=== PATIENT | female | born 1945 | race Caucasian/White ===

== ENCOUNTER 2025-09-16 17:51 | Emergency (ER) | payer MEDICARE, BC ==
[~2025-09-16] VITALS: Ht 165.1 cm; Wt 77.6 kg
[2025-09-16 18:58] LABS: LEUKOCYTE ESTERASE ,URINE SMALL (Neg); NITRITES, URINE POSITIVE (Neg); OCCULT BLOOD,URINE LARGE (Neg)
[2025-09-16 19:07] LABS: UA COLLECTION TYPE URINAL
[2025-09-16 19:08] LABS: MUCUS STRANDS NONE SEEN /LPF (Neg); SQUAMOUS EPITHELIAL CELL,UR FEW /LPF (FEW)
[2025-09-16 19:34] LABS: MEAN PLATELET VOLUME 9.3 FL (7.4-10.4); RED CELL DISTRIBUTION WIDTH 13.6 % (11.5-14.5)
[2025-09-16] MEDS ORDERED: CefTRIAXone 2gm/D5W 50ml BAG 50 ML IV SCH (19:35)
--- NOTE | 2025-09-16 19:51 | Physician Documentation ---
History of Present Illness ~ Chief Complaint: Blood in Urine Stated Complaint: BLOODY URINE Time Seen by MD: 19:45 HPI This 80-year-old female presents to the ED with a complaint of left pelvic pain and blood in her urine for the last two days. Denies having any long history of urinary tract infections. sHe denies any fevers nausea vomiting or diarrhea. She has the ability to empty her bladder denies any history of kidney stone Medication Reconciliation Allergies: Coded Allergies: No Known Allergies (Unverified , 09/16/25) Review of Systems All Other Systems at this time: Reviewed and Negative ROS General: Alert, no apparent distress. Respiratory: Lungs clear, no respiratory distress. Cardiovascular: Regular rate and rhythm, no murmurs. Gastrointestinal: Soft, nontender, nondistended. Bowels sounds present. Negative CVA tenderness Extremities: Normal range of motion, no deformity. Neurologic: Oriented x4. Psychiatric: Normal mood and affect. Skin: Normal color, warm and dry. No edema, no ecchymosis. Physical Exam Vital Signs: Temperature: 96.9, Source: Temporal, Heart Rate: 85, Respiratory Rate: 15, BP: 197/78, Pulse Oximetry: 98, Weight: 77.600 Physical Exam General: Alert, no apparent distress. Respiratory: Lungs clear, no respiratory distress. Cardiovascular: Regular rate and rhythm, no murmurs. Gastrointestinal: Soft, nontender, nondistended. Bowels sounds present. Negative CVA tenderness Extremities: Normal range of motion, no deformity. Neurologic: Oriented x4. Psychiatric: Normal mood and affect. Skin: Normal color, warm and dry. No edema, no ecchymosis. Progress Results/Orders Results/Orders Orders - GUILHERME NIEVES TICKET AGENT Culture Blood (09/16/25 18:18) Monitor (09/16/25 18:18) Saline Lock (09/16/25 18:18) Procalcitonin (09/16/25 18:18) BMP (09/16/25 18:18) Lacticsepsis (09/16/25 18:18) Completed Orders - GUILHERME NIEVES [employer] AGENT Cbc/Diff (09/16/25 18:18) Ceftriaxone 2gm/D5w 50ml Bag (Rocephin 2 (09/16/25 19:35) Vital Signs 09/16/25 18:06 Temp 96.9 Pulse 85 Resp 15 B/P (MAP) 197/78 Pulse Ox 98 Laboratory Tests Test 09/16/25 18:10 09/16/25 18:31 Urine Specimen Description Urinal Urine Color Yellow Urine Clarity Cloudy Urine pH 6.0 Urine Specific Martin 1.020 Urine Protein 100 H Urine Glucose (UA) Negative Urine Ketones Negative Urine Occult Blood Large H Urine Nitrite Positive H Urine Bilirubin Small Urine Urobilinogen 0.2 Urine Leukocyte Esterase Small H Urine RBC 50-100 Urine WBC 10-20 H Urine Squamous Epithelial Cells Few Urine Bacteria 1+ Urine Mucus None seen Urine Culture Indicated Indicated Volume Urine Centrifuged 10 ml Urine Comment White Blood Count 10.1 Red Blood Count 4.30 Hemoglobin 13.5 Hematocrit 38.9 Mean Corpuscular Volume 90.5 Mean Corpuscular Hemoglobin 31.4 H Mean Corpuscular Hemoglobin Concent 34.7 Red Cell Distribution Width 13.6 Platelet Count 176 Mean Platelet Volume 9.3 Neutrophils (%) (Auto) 86.2 H Lymphocytes (%) (Auto) 5.9 L Monocytes (%) (Auto) 6.2 Eosinophils (%) (Auto) 1.4 Basophils (%) (Auto) 0.3 Neutrophils # (Auto) 8.7 H Lymphocytes # (Auto) 0.6 L Monocytes # (Auto) 0.6 Eosinophils # (Auto) 0.1 Basophils # (Auto) 0.0 CBC Comment Chemistry Comments Medical Decision Making Additional information obtaine: old records Findings I discussed with the patient that she is positive for nitrites and urinary tract infect. She is hemodynamically stable her labs were reassuring and her vitals are within normal limits. I discussed with the patient that because she is elderly she is at higher risk of developing urosepsis. I did offer hospitalization however she declined. We will place her on oral antibiotics with a starting dose of Rocephin in the ED Urinary Diff Dx:Considerations: Include: AAA, , Aortic dissection, Appendicitis, Bowel obstruction, Cholelithiasis, Choleangitis, DJD, Ectopic , Hepatitis, HNP, Impaction, Intrauterine , Musculoskeletal pain, Ovarian torsion, Pancreatitis, PID, Post-Op complication, Pyelonephritis, Renal failure, Strain, Urinary Obstruction, Urolithiasis, Urinary retention, UTI, Vaginitis, Other Genital Diff Dx:Considerations: Unlikely: -Complete, - Incomplete, -Inevitable, Ablortion-Missed, -Threatened, Abruptio placentae, Bartholin abscess, Bartholin cyst, Blood loss anemia, Constipation, Cervicitis, Dsymenorrhea, Ectopic , Foreign body, Hormonal, Hidr adenitis suppurativa, Intrauterine , Menorrhagia, Menometrorrhagia, Menstrual bleeding, Myomatous uterus, Perianal abscess, Physiologic discharge, Pinworms, PID, Placenta previa, , Precipitous Hct, Trauma, UTI, Vaginitis(osis)-Atrophic, Vaginitis, Vaginitis(osis)-Bacterial, Vaginitis(osis)- Candidal, Vaginitis(osis)-Contact, Vaginitis(osis)-Herpes, Vaginitis(osis)- Trich., Other Departure Disposition: HOME / SELF CARE / HOMELESS Impression: Primary Impression: Urinary tract infection Condition: Stable Discharge Instructions: Hematuria, Adult, Urinary Tract Infection, Adult Referrals: NO PRIMARY CARE PROVIDER (PCP) Prescriptions Nitrofurantoin Macrocrystal (Nitrofurantoin) 100 Mg Capsule 1 CAP PO Q12H for 7 Days, #14 CAP 0 Refills Prov: GUILHERME NIEVES NP 09/16/25 Education Educated: Patient Educated regarding: diagnosis Signature Scribe Signature: re Attestation: Scribed for Guilherme Nieves [employer] Reviewer by Guilherme Sanchez NP . 09/16/25 19:48 GUILHERME NIEVES NP Sep 16, 2025 19:51
[2025-09-16] MEDS ORDERED: NITR100C PO (19:57)
[2025-09-16 19:58] LABS: CREATININE 1.29 MG/DL (0.40-0.90); TOTAL CARBON DIOXIDE 23.6 MMOL/L (24-32); eCRCL 32 ML/MIN; eGFR 40 ML/MIN
[2025-09-16] MEDS: CefTRIAXone 1000mg IM Kit (w/lidocaine diluent) IM ONE (20:17)
[2025-09-16 20:19] VITALS: BP 148/67; PULSE 90; RESP 18; TEMP 98.5; O2SAT 100
[2025-09-20] MEDS ORDERED: LEVO750T68 PO (09:33)
== END 2025-09-16 20:33 | disposition home or self-care (01) ==
LOC: ER 17:52
DX: N39.0 Urinary tract infection, site not specified (principal)
CPT/HCPCS: 36415; 80048; 81001; 83605; 84145; 85025; 87040; 87077; 87088; 87186; 96372; 99283; J0696